=== PATIENT | male | born 1960 | race Caucasian/White ===

== ENCOUNTER 2017-03-03 16:17 | Emergency (ER) | payer OTHER ==
[~2017-03-03] VITALS: Ht 177.8 cm; Wt 103.9 kg
[2017-03-03] MEDS ORDERED: LISINOPRIL10 MG PO (17:52)
[2017-03-03] MEDS ORDERED: LIPITOR10 M1 PO (17:53)
[2017-03-03] MEDS ORDERED: GLUCOPHAGE1000 MG PO (17:54)
== END 2017-03-03 17:57 | disposition short-term general hospital (02) ==
LOC: ER 16:17 → RAD 16:18 → ER 17:57
DX: Z57.5 Occupational exposure to toxic agents in other industries (principal); E11.9 Type 2 diabetes mellitus without complications; Z90.49 Acquired absence of other specified parts of digestive tract; Z98.890 Other specified postprocedural states; Z79.84 Long term (current) use of oral hypoglycemic drugs; Z79.899 Other long term (current) drug therapy